=== PATIENT | female | born 1970 | race Caucasian/White ===

== ENCOUNTER 2023-03-03 05:36 | Day surgery (SDC) | payer BC ==
[2023-02-27 13:57] VITALS: BMI 26.2
[2023-03-03] MEDS ORDERED: PROPOFOL 40 ML ONE (06:42)
[2023-03-03] MEDS ORDERED: Ondansetron PF 4 MG/2 ML Vial ONE (06:42)
[2023-03-03] MEDS ORDERED: Fentanyl 250 MCG/5 ML VIAL ONE (06:42)
[2023-03-03] MEDS ORDERED: Dexamethasone 20 MG/5 ML VIAL ONE (06:42)
[2023-03-03] MEDS ORDERED: Rocuronium Bromide 10 MG/ML (10ML VIAL) ONE (06:42)
[2023-03-03] MEDS ORDERED: Lidocaine 1% PF 5 ML VIAL ONE (06:42)
[2023-03-03 06:53] LABS: Hematocrit 39.1 % (34.9-44.5)
[2023-03-03] MEDS ORDERED: Midazolam HCl 2 mg/2 ml Vial ONE ×2 (06:56→07:02)
[2023-03-03] MEDS ORDERED: SUGAMMADEX SODIUM 200 MG/2 ML VIAL ONE (07:02)
[2023-03-03] MEDS ORDERED: Scopolamine 1.5 mg/72 hour Patch ONE (07:02)
[2023-03-03] MEDS ORDERED: Dexmedetomidine 200 MCG/2 ML VIAL ONE (07:02)
[2023-03-03] MEDS ORDERED: diphenhydrAMINE 50 MG/ML VIAL ONE (07:07)
[2023-03-03] MEDS ORDERED: Midazolam HCl 2 mg/2 ml Vial IVP PRN (07:12)
[2023-03-03] MEDS ORDERED: Scopolamine 1.5 mg/72 hour Patch TOP PRN (07:13)
[2023-03-03] MEDS ORDERED: Lactated Ringer's 1,000 ML IV SCH (07:15)
[2023-03-03] MEDS ORDERED: PROPOFOL 20 ML ONE (07:30)
[2023-03-03] MEDS ORDERED: Lidocaine 1% w/Epinephrine 1:100K 20 ML VIAL ONE (07:36)
[2023-03-03] MEDS ORDERED: PHENYLEPHRINE-NS 100 MCG/ML 10 ML SYRINGE ONE (08:05)
[2023-03-03] MEDS ORDERED: fentaNYL 50 mcg/mL 1 mL Vial ONE (08:53)
[2023-03-03] MEDS ORDERED: Promethazine HCl 25 MG/ML VIAL IM/IV PRN (09:00)
[2023-03-03] MEDS ORDERED: Ondansetron HCl/PF 4 MG/2 ML Vial IVP PRN (09:00)
[2023-03-03] MEDS ORDERED: Hydrocodone-Acetamin 15 ML UDCUP ONE (09:24)
[2023-03-03] MEDS ORDERED: Hydrocodone-Acetamin 15 ML UDCUP PO PRN ×2 (09:26)
== END 2023-03-03 10:10 | disposition home or self-care (01) ==
LOC: CSHSDC 05:36
PROVIDERS: ATTEND Otolaryngology Plastic Surgery within the Head & Neck
PROC: 0GTG0ZZ Resection of Left Thyroid Gland Lobe, Open Approach (ICD-10-PCS; principal; 2023-03-03)
DX: E04.2 Nontoxic multinodular goiter (principal); J30.9 Allergic rhinitis, unspecified; J32.9 Chronic sinusitis, unspecified; G43.909 Migraine, unspecified, not intractable, without status migrainosus; D64.9 Anemia, unspecified; H46.9 Unspecified optic neuritis; I82.409 Acute embolism and thrombosis of unspecified deep veins of unspecified lower extremity; I10 Essential (primary) hypertension; F41.9 Anxiety disorder, unspecified; Z98.890 Other specified postprocedural states; Z88.0 Allergy status to penicillin; Z79.82 Long term (current) use of aspirin; Z79.899 Other long term (current) drug therapy
CPT/HCPCS: 36415; 85014; 88307; J1100; J1200; J2250; J2405; J2704; J3010